=== PATIENT | female | born 1985 | race Caucasian/White ===

== ENCOUNTER → 2025-03-04 | Outpatient (CLI) | payer BC, SELFPAY ==
[2025-03-04 08:53] LABS: Basophils % (Auto) 1 % (0-2.5); Eosinophils # (Auto) 0.1 Thou/mm3 (0.0-0.5); Eosinophils % (Auto) 2 % (0-10); Hematocrit 39.6 % (36.0-46.0); Hemoglobin 13.2 g/dL (12.0-16.0); Immature Granulocytes % (Auto) 0 % (0-0); Immature Granulocytes Auto 0.01 Thou/mm3 (0.00-0.00); Lymphocytes # (Auto) 1.7 Thou/mm3 (1.0-4.8); Lymphocytes % (Auto) 31 % (10-50); Mean Corpuscular HGB Conc 33.3 g/dl (31.0-37.0); Mean Corpuscular Hemoglobin 30.6 pg (25.0-35.0); Mean Corpuscular Volume 92 fL (80-100); Monocytes # (Auto) 0.3 Thou/mm3 (0.0-0.8); Monocytes % (Auto) 6 % (0-12); Neutrophils # (Auto) 3.4 Thou/mm3 (1.8-7.7); Neutrophils % (Auto) 61 % (37-80); Nucleated Red Blood Cell % 0 /100 WBC (0); Platelet Count 199 Thou/mm3 (140-440); RDW Standard Deviation 43.7 fL (36.4-46.3); Red Blood Count 4.31 Miln/mm3 (4.00-5.20); White Blood Count 5.6 Thou/mm3 (3.6-11.0)
[2025-03-04 08:58] LABS: Glucose Estimated Average 97 mg/dL (80-131)
[2025-03-04 09:02] LABS: Parathyroid Hormone Intact 72.9 pg/ml (18.5-88.0)
[2025-03-04 09:07] LABS: Alanine Aminotransferase 23 U/L (10-49); Albumin, Serum 4.4 gm/dL (3.5-5.0); Albumin/Globulin Ratio 1.6 (1.2-2.2); Alkaline Phosphatase 65 U/L (46-116); Anion Gap 9 (7-16); Aspartate Amino Transferase 17 U/L (0-34); BUN/Creatinine Ratio 13 Ratio (12-20); Bilirubin,Total 0.5 mg/dL (0.3-1.2); Blood Urea Nitrogen 10 mg/dL (9-23); Calcium 9.2 mg/dL (8.3-10.6); Calcium (Corrected) 9.2 mg/dL (8.5-10.1); Carbon Dioxide 27.3 mMol/L (20.0-31.0); Cardiac Risk Estimate 5.1 RATIO (3.7-5.6); Chloride 107 mMol/L (98-107); Cholesterol 139 mg/dL (132-200); Creatinine (Component) 0.8 mg/dL (0.6-1.3); Globulin 2.7 gm/dL (2.3-3.5); Glucose 100 mg/dL (74-106); HDL Cholesterol 27 mg/dL (40-60); LDL Cholesterol,Calculated 90 mg/dL (0-130); Osmolality,Calculated 283 (275-295); Potassium 4.3 mMol/L (3.4-5.1); Sodium 143 mMol/L (136-145); Thyroid Stimulating Hormone 1.81 uIU/mL (0.55-4.78); Total Protein 7.1 gm/dL (5.7-8.2); Triglycerides 110 mg/dL (30-150); eGFR > 60 See Note
[2025-03-04 09:12] LABS: Folate > 24.00 ng/mL (>5.38); Vitamin B12 319 pg/mL (211-911)
[2025-03-10 06:57] LABS: Vitamin B1 (Thiamine)* 12 nmol/L (8-30); Vitamin B6, Plasma* 10.2 ng/mL (2.1-21.7)
== END | disposition home or self-care (01) ==
LOC: COPL 07:04
PROVIDERS: PCP Internal Medicine; Referring Provider Surgery; Visit Provider Surgery
DX: E66.01 Morbid (severe) obesity due to excess calories (principal); E28.2 Polycystic ovarian syndrome
CPT/HCPCS: 36415; 80053; 80061; 82306; 82607; 82746; 83036; 83970; 84207; 84425; 84443; 85025

== ENCOUNTER → 2025-05-05 | Outpatient (CLI) | payer BC, SELFPAY ==
[2025-05-05 09:50] LABS: Quantiferon-TB* See Sep Rpt
== END | disposition home or self-care (01) ==
LOC: COPL 09:14
PROVIDERS: PCP Internal Medicine; Referring Provider Internal Medicine; Visit Provider Internal Medicine
DX: Z11.1 Encounter for screening for respiratory tuberculosis (principal)
CPT/HCPCS: 86480

== ENCOUNTER → 2025-05-10 | Outpatient (CLI) | payer BC, SELFPAY ==
[2025-05-11 09:24] LABS: BVAG Candida Negative (Negative); Bacterial Vaginosis Markers Positive (Negative); Candida glabrata Negative (Negative); Candida krusei PCR Negative (Negative); Trichomonas Negative (Negative)
== END | disposition home or self-care (01) ==
LOC: SLDO 15:20
PROVIDERS: Referring Provider Physician Assistant Medical; Visit Provider Physician Assistant Medical
DX: B37.89 Other sites of candidiasis (principal); N76.0 Acute vaginitis; A59.01 Trichomonal vulvovaginitis
CPT/HCPCS: 81514

== ENCOUNTER 2025-07-25 08:35 | Day surgery (SDC) | payer BC, SELFPAY ==
--- NOTE | 2025-07-22 11:38 | EKG_ITS ---
[facility] Test Date: 2025-07-22 Pat Name: CYNTHIA SYED Department: Room: - Gender: Female [employer] Sheet: [place] : 1985 Requested By: Gudelia Post Order Number: [id number] Reading MD: Gudelia Post Measurements Intervals [place] Rate: 70 P: 52 MD: 169 QRS: 26 QRSD: 98 T: 38 QT: 387 QTc: 420 Interpretive Statements SINUS RHYTHM Compared to ECG 03/26/2021 08:09:58 No significant changes /store/S0/[id number]/ecg/[id number].pdf
[2025-07-22 11:50] LABS: HCG Qualitative,Urine Negative
[2025-07-22 12:03] LABS: Alanine Aminotransferase 17 U/L (10-49); Albumin, Serum 4.4 gm/dL (3.5-5.0); Albumin/Globulin Ratio 1.8 (1.2-2.2); Alkaline Phosphatase 60 U/L (46-116); Anion Gap 7 (7-16); Aspartate Amino Transferase 17 U/L (0-34); BUN/Creatinine Ratio 11 Ratio (12-20); Bilirubin,Total 0.4 mg/dL (0.3-1.2); Blood Urea Nitrogen 9 mg/dL (9-23); Calcium 9.5 mg/dL (8.3-10.6); Calcium (Corrected) 9.5 mg/dL (8.5-10.1); Carbon Dioxide 28.4 mMol/L (20.0-31.0); Chloride 106 mMol/L (98-107); Creatinine (Component) 0.8 mg/dL (0.6-1.3); Globulin 2.5 gm/dL (2.3-3.5); Glucose 77 mg/dL (74-106); INR 1.0 (0.9-1.3); Osmolality,Calculated 278 (275-295); Partial Thromboplastin Time 25.2 Seconds (22.0-36.0); Potassium 3.8 mMol/L (3.4-5.1); Prothrombin Time 10.9 Seconds (9.0-12.2); Sodium 141 mMol/L (136-145); Total Protein 6.9 gm/dL (5.7-8.2); eGFR > 60 See Note
[2025-07-25 09:03] VITALS: BP 136/87; PULSE 84; RESP 18; TEMP 36; O2SAT 97; BMI 46.1
[2025-07-25] MEDS: RINGERS LACTATED 1000 ML 1,000 ML 20 ML IV (09:47)
[2025-07-25 10:10] VITALS: BP 135/86; PULSE 87; RESP 18; TEMP 36.3; O2SAT 100
[2025-07-25 10:20] VITALS: BP 135/75; PULSE 70; RESP 24; O2SAT 100
[2025-07-25 10:30] VITALS: BP 130/85; PULSE 68; RESP 23; O2SAT 100
[2025-07-25 10:40] VITALS: BP 145/80; PULSE 73; RESP 19; O2SAT 100
== END 2025-07-25 10:40 | disposition home or self-care (01) ==
PROVIDERS: Anesthesiology; PCP Surgery; Referring Provider Specialist; Visit Provider Specialist
PROC: (CPT 43239; principal; 2025-07-25 09:00)
DX: K29.70 Gastritis, unspecified, without bleeding (principal); Z01.818 Encounter for other preprocedural examination; E66.01 Morbid (severe) obesity due to excess calories; Z68.42 Body mass index [BMI] 45.0-49.9, adult
CPT/HCPCS: 43239; 36415; 80053; 81025; 85610; 85730; 93005; A4649; J7120

== ENCOUNTER 2025-09-19 13:16 | Emergency (ER) | payer BC, SELFPAY ==
--- NOTE | 2025-09-19 | XR_ITS ---
Examination: CT abdomen and pelvis without contrast. Coronal 3-D reconstructions. Sagittal 2-D reconstructions. Date and time of exam: September 19, 2025, 1521 hours INDICATIONS: Upper abdominal pain and nausea today CTDI: vol (mGy): 13.8 DLP: (mGycm): 799 Technique: Axial images of the abdomen have been obtained, 3 mm slice thickness Intravenous contrast material has not been administered. Low dose protocols were performed. One or more of the following dose reduction techniques were used; automated exposure control, adjustment of the mA and/or KV according to patient size, use of iterative reconstruction technique. Findings: No visualized liver or splenic lesion No gallstones No pancreatic or adrenal mass No renal or ureteral calculi, no hydronephrosis Aorta normal size Normal appendix No bowel obstruction or diverticulitis Anteverted uterus with satisfactory position intrauterine device No pelvic mass Bladder intact Adequate bone density IMPRESSION: Negative for pancreatitis No renal or ureteral calculi, no hydronephrosis Normal appendix
[2025-09-19 13:17] VITALS: BMI 44.8
[2025-09-19 13:32] VITALS: BP 155/108; PULSE 68; RESP 18; TEMP 36.9; O2SAT 95
--- NOTE | 2025-09-19 13:47 | XR_ITS ---
Examination: Abdomen sonogram, Limited Date and time of exam: September 19, 2025, 1421 hours INDICATIONS: Right upper abdominal pain beginning 3 days ago. Technique: Real-time nunez scale transabdominal sonographic images of the upper abdomen obtained. Findings: Normal gallbladder Normal common bile duct 0.3 cm Pancreatic head 2.5 cm Liver 13.7 cm fatty infiltration Normal hepatopetal portal venous Patent IVC IMPRESSION: Normal gallbladder Normal common bile duct
--- NOTE | 2025-09-19 13:49 | PD.EDABDPN ---
ED Abdominal Pain RME/HPI General Chief Complaint: Abdominal Pain Stated complaint: ABD PAIN Time seen by provider: 09/19/25 13:20 Arrival date/time: 09/19/25 13:16 RME / HPI RME / HPI narrative: See [facility] for Dr. Hansen's HPI documentation. Related Data Previous Rx's ?Medication ?Instructions ?Recorded famotidine 40 mg tablet 40 mg PO .bedtime #30 tabs 09/19/25 omeprazole 40 mg capsule,delayed 40 mg PO QDAY #30 caps 09/19/25 release ondansetron 4 mg disintegrating 4 mg PO TID PRN nausea and 09/19/25 tablet vomiting 30 days #10 tabs Allergies Allergy/AdvReac Type Severity Reaction Status Date / Time No Known Allergies Allergy Verified 03/07/18 14:35 Review of Systems Review of Systems Systems Reviewed: All systems reviewed, normal except as documented Past Medical History Past Medical History GASTROINTESTINAL: Positive Gastrointestinal Disorders and Obesity OTHER HISTORY: Positive Anesthesia Reactions (n/v) Family History FAMILY HISTORY: Negative Family Cardiac Disorders Surgical History SURGICAL: Positive Section (x1) Social History SMOKING STATUS: Never smoker ED Exam Narrative Physical exam: See [facility] for Dr. Hansen's physical exam documentation. Course Quality Measures none Orders Category Date Time Status CT abdomen pelvis wo con Stat Exams 09/19/25 Completed US gall bladder Stat Exams 09/19/25 13:47 Completed Amylase Stat Lab 09/19/25 13:50 Completed Bilirubin,Direct Stat Lab 09/19/25 13:50 Completed CBC Stat Lab 09/19/25 13:50 Completed CMP [Comprehensive Metabolic Panel] Stat Lab 09/19/25 13:50 Completed HCG,Qualitative Serum Stat Lab 09/19/25 13:50 Completed Lipase Stat Lab 09/19/25 13:50 Completed Magnesium Stat Lab 09/19/25 13:50 Completed UA, C/S IF [Urinalysis, C/S if Indicated] Stat Lab 09/19/25 14:00 Completed ACETAMINOPHEN w/COD 300-30 [Tylenol w/Cod #3] Med 09/19/25 13:46 Discontinued 2 tab PO X1 ONE Famotidine [Pepcid] Med 09/19/25 13:46 Discontinued 40 mg PO X1 ONE Ondansetron Odt [Zofran Odt] Med 09/19/25 13:46 Discontinued 4 mg PO X1 ONE Pantoprazole [Protonix] Med 09/19/25 13:46 Discontinued 40 mg PO X1 ONE Vital Signs Vital signs: Vital Signs Temperature 98.4 F 09/19/25 13:32 Pulse Rate 68 09/19/25 13:32 Respiratory Rate 18 09/19/25 13:32 Blood Pressure 155/108 H 09/19/25 13:32 Pulse Oximetry (%) 95 09/19/25 13:32 Oxygen Delivery Method Room Air 09/19/25 13:32 Pulse ox is 95% on room air which is adequate. Abdominal Pain MDM MDM Narrative MDM Narrative:: This section includes all my notes and documentations, including HPI, PE, and ED course. Brayan Hansen MD HPI: 40 year old female here with upper abdominal pain and severe nausea for several days, severe in the past few hours. No history of abdominal surgery. No fever or chills. No urinary symptoms. No other complaints. ROS: All negative except as documented in HPI. Physical Exam: General: Alert and oriented. Appears uncomfortable. Eyes: Conjunctivae and lids clear. ENT: No nasal congestion. Neck: Supple. Heart: RRR. Lungs: No respiratory distress. Good air movement. No rhonchi, wheezing, rales. Abdomen: Soft with epigastric tenderness. Normal bowel sounds. No distension. No rebound or guarding. Back: No CVA tenderness. Skin: Warm and dry. Neuro: Alert and oriented X 3. I reviewed all diagnostic test results: My review of the CT abdomen/pelvis report is: No acute findings My review of the US gallbladder report is: No acute findings Blood tests and urine tests are unremarkable At this point, diagnoses include: Stomach ulcer Treatment here included: Zofran 4 mg PO Famotidine 40 mg PO Pantoprazole 40 mg PO Two Tylenol #3 Significant improvement noted. Recommended more outpatient follow-up. Based on my best medical judgment, made decision no further evaluation or treatment indicated at this time. Patient understands and agrees to the discharge instructions customized and printed, see below. Discharge instructions from Dr. Hansen: ?After evaluation, your symptoms are due to stomach ulcer (see attached handout).? There is no emergency such as appendicitis needing emergent surgery. ?To help heal the ulcer, take Omeprazole 40 mg every morning and Famotidine 40 mg at bedtime for 2 weeks then as needed. ?Zofran for nausea/vomiting.? Clear liquid diet for 24 hours.? Then slowly advance diet as tolerated. ?Avoid food and beverages that can trigger and worsen ulcers.? See attached handout. ?See a private doctor on 09/21/2025. To make sure there is no serious intra-abdominal condition, ask for help with more investigation not available here in the ER.? Such as EGD or scoping the stomach, colonoscopy or scoping the colon, and referral to see music educator. ?Seek immediate medical care with worsening or with any concerns. Brayan Hansen MD Patient data External records reviewed:: [facility] previous records Clinical information provided by:: patient Social determinants that could affect healthcare access:: none Patient has the following chronic illnesses:: Gastritis How is presenting disease/condition affected by chronic disease/condition?: exacerbated by Evaluation data The following diagnostics were reviewed and interpreted by me:: lab results and radiology exam(s) Lab and/or radiology exams considered but not ordered:: None Interpretation Summary: I reviewed all diagnostic test results: My review of the CT abdomen/pelvis report is: No acute findings My review of the US gallbladder report is: No acute findings Blood tests and urine tests are unremarkable Medications / Prescriptions Medications or Prescriptions considered but not ordered:: None Medication administrations:: Medication Administration History Discontinued Medications Acetaminophen/Codeine Phosphate (Acetaminophen W/Cod 300-30 Tablet) 2 tab PO X1 ONE Stop: 09/19/25 13:47 Last Admin: 09/19/25 14:17 Dose: 2 tab Documented By: KAJAL Famotidine (Famotidine 20 Mg Tablet) 40 mg PO X1 ONE Stop: 09/19/25 13:47 Last Admin: 09/19/25 14:16 Dose: 40 mg Documented By: KAJAL Ondansetron HCl (Ondansetron Odt 4 Mg Tabrap) 4 mg PO X1 ONE; Protocol Stop: 09/19/25 13:47 Last Admin: 09/19/25 14:15 Dose: 4 mg Documented By: KAJAL Pantoprazole Sodium (Pantoprazole 40 Mg Tablet) 40 mg PO X1 ONE Stop: 09/19/25 13:47 Last Admin: 09/19/25 14:16 Dose: 40 mg Documented By: KAJAL Treatment here included: Zofran 4 mg PO Famotidine 40 mg PO Pantoprazole 40 mg PO Two Tylenol #3 Consultations Consultation(s) initiated? (list below): No Diagnosis Differential diagnosis abdominal pain: abdominal pain, acute appendicitis, calculus of kidney, constipation, diverticulitis, endometriosis, gastroenteritis, pancreatitis, small bowel obstruction and other (Gastritis, PUD ) Most likely diagnosis given after review of the tests above:: Stomach ulcer Admission Indicated Admission indicated?: not indicated Explain why admission is indicated or not indicated:: With significant improvement and no condition needing emergent intervention, there was no indication for admission. Admission Request Was there a request for admission?: No Disposition Plan Disposition Plan: Discharge Discharge Attestation Discharge Attestation: The patient and all family members were given an opportunity to ask questions and understood the discharge instructions. Discharge instructions specifically effects, indications for sooner follow up or return to the emergency department, and the expected course of current diagnosis. Patient condition: Stable Discharge Plan Plan Patient Disposition: HOME (Self Care) Prescriptions/Referrals Prescriptions/Med Rec: New famotidine 40 mg tablet 40 mg PO .bedtime Qty: 30 0RF omeprazole 40 mg capsule,delayed release(DR/EC) 40 mg PO QDAY Qty: 30 0RF ondansetron 4 mg tablet,disintegrating 4 mg PO TID PRN (Reason: nausea and vomiting) 30 Days Qty: 10 0RF Referrals: Kirk Mcgrath [Primary Care Provider] - In 1 week Problem List Clinical Impression: Stomach ulcer Patient/Caregiver Discharge Instructions Discharge Activity: activity as tolerated Education Materials: ED PEPTIC ULCER vs GASTRITIS Additional Instructions: Discharge instructions from Dr. Hansen: ?After evaluation, your symptoms are due to stomach ulcer (see attached handout).? There is no emergency such as appendicitis needing emergent surgery. ?To help heal the ulcer, take Omeprazole 40 mg every morning and Famotidine 40 mg at bedtime for 2 weeks then as needed. ?Zofran for nausea/vomiting.? Clear liquid diet for 24 hours.? Then slowly advance diet as tolerated. ?Avoid food and beverages that can trigger and worsen ulcers.? See attached handout. ?See a private doctor on 09/21/2025. To make sure there is no serious intra-abdominal condition, ask for help with more investigation not available here in the ER.? Such as EGD or scoping the stomach, colonoscopy or scoping the colon, and referral to see music educator. ?Seek immediate medical care with worsening or with any concerns. Print Language: Spanish Stand Alone Forms: Jody Award Info., Patient Portal Info Letter
[2025-09-19 14:06] LABS: Basophils # (Auto) 0.0 Thou/mm3 (0.0-0.2); Basophils % (Auto) 1 % (0-2.5); Eosinophils # (Auto) 0.1 Thou/mm3 (0.0-0.5); Eosinophils % (Auto) 1 % (0-10); Hematocrit 43.1 % (36.0-46.0); Hemoglobin 14.5 g/dL (12.0-16.0); Immature Granulocytes Auto 0.03 Thou/mm3 (0.00-0.00); Lymphocytes # (Auto) 2.0 Thou/mm3 (1.0-4.8); Lymphocytes % (Auto) 30 % (10-50); Mean Corpuscular HGB Conc 33.6 g/dl (31.0-37.0); Mean Corpuscular Hemoglobin 30.8 pg (25.0-35.0); Mean Corpuscular Volume 92 fL (80-100); Monocytes # (Auto) 0.4 Thou/mm3 (0.0-0.8); Monocytes % (Auto) 5 % (0-12); Neutrophils # (Auto) 4.2 Thou/mm3 (1.8-7.7); Neutrophils % (Auto) 62 % (37-80); Nucleated Red Blood Cell # 0.00 Thou/mm3 (0.00-0.00); Nucleated Red Blood Cell % 0 /100 WBC (0); Platelet Count 206 Thou/mm3 (140-440); RDW Standard Deviation 41.6 fL (36.4-46.3); Red Blood Count 4.71 Miln/mm3 (4.00-5.20); White Blood Count 6.7 Thou/mm3 (3.6-11.0)
[2025-09-19 14:14] LABS: Collection Type, Urine Clean Catch
[2025-09-19] MEDS: ONDANSETRON ODT 4 MG TABRAP PO (14:15)
[2025-09-19] MEDS: FAMOTIDINE 20 MG TABLET 40 MG PO (14:16)
[2025-09-19] MEDS: PANTOPRAZOLE 40 MG TABLET PO (14:16)
[2025-09-19] MEDS: ACETAMINOPHEN w/COD 300-30 TABLET 2 TAB PO (14:17)
[2025-09-19 14:18] LABS: Alanine Aminotransferase 29 U/L (10-49); Albumin, Serum 5.0 gm/dL (3.5-5.0); Albumin/Globulin Ratio 2.0 (1.2-2.2); Alkaline Phosphatase 63 U/L (46-116); Amylase 51 U/L (30-118); Anion Gap 9 (7-16); Aspartate Amino Transferase 21 U/L (0-34); BUN/Creatinine Ratio 10 Ratio (12-20); Bilirubin,Direct 0.1 mg/dL (0.0-0.3); Bilirubin,Total 0.4 mg/dL (0.3-1.2); Blood Urea Nitrogen 8 mg/dL (9-23); Calcium 10.0 mg/dL (8.3-10.6); Calcium (Corrected) 10.0 mg/dL (8.5-10.1); Carbon Dioxide 28.4 mMol/L (20.0-31.0); Chloride 105 mMol/L (98-107); Creatinine (Component) 0.8 mg/dL (0.6-1.3); Estimated Creatinine Clearance 111.1 mL/min (>60); Globulin 2.5 gm/dL (2.3-3.5); Glucose 90 mg/dL (74-106); Lipase 38 U/L (12-53); Magnesium 1.8 mg/dL (1.6-2.6); Osmolality,Calculated 281 (275-295); Potassium 4.3 mMol/L (3.4-5.1); Sodium 142 mMol/L (136-145); Total Protein 7.5 gm/dL (5.7-8.2); eGFR > 60 See Note
[2025-09-19 14:27] LABS: HCG,Qualitative Serum Negative
[2025-09-19 14:28] LABS: Bilirubin,Urine Negative (Negative); Blood,Urine Negative (Negative); Clarity,Urine Clear (Clear/Hazy); Color,Urine Colorless (Lt Yel-Yel); Culture Indicated,Urine Not Indicated; Glucose, Urine Negative (Negative); Ketones,Urine Negative (Negative); Leukocyte Esterase,Urine Positive (Negative); Nitrite,Urine Negative (Negative); PH,Urine 6.5 (5.0-7.0); Protein,Urine Negative (Neg - Trace); RBC,Urine 1 /hpf (0-3); Specific Gravity,Urine 1.009 (1.001-1.035); Squamous Epithelial Cell,Urine < 1 /hpf (0-5); Urobilinogen,Urine Negative mg/dL (0.0-1.0); WBC,Urine 2 /hpf (0-5)
== END 2025-09-19 16:37 | disposition home or self-care (01) ==
PROVIDERS: Emergency Provider Emergency Medicine; PCP Internal Medicine
DX: K25.9 Gastric ulcer, unspecified as acute or chronic, without hemorrhage or perforation (principal)
CPT/HCPCS: 36415; 74176; 76705; 80053; 81001; 82150; 82248; 83690; 83735; 84703; 85025; 99283; Q0162; A9270